=== PATIENT | female | born 1990 | race Two or more races ===

== ENCOUNTER 2019-11-04 19:44 | Emergency (ER) | payer SELFPAY ==
[~2019-11-04] VITALS: Ht 160 cm; Wt 54.4 kg
--- NOTE | 2019-11-04 19:50 | NUR ---
ED Nurse Note: Patient brought into ED by RA [id number] from home c/o abdominal pain and severe vaginal bleeding onset about 30 minutes, EMS states that patient saturated about 4 chux pads prior to arrival. patient presents with bright red bleeding. patient aa4. changed to gown; attached to monitor; side rails raised; bed locked at lowest position.
[2019-11-04 20:00] VITALS: BP 122/84
--- NOTE | 2019-11-04 20:00 | NUR ---
ED Nurse Note: iv access established. blood collected; sent down to lab. patient expelled fetus into bedpan; sent down to pathology.
--- NOTE | 2019-11-04 20:00 | NUR ---
Note lux in EDM - 11/05/19 at 0322 by [facility] ED Nurse Note: Patient brought into ED by RA [id number] from home c/o abdominal pain and severe vaginal bleedign onset about 30 minutes, EMS states that patient saturated about 4 donn pads prior to arrival. patient presents with bright red bleeding. ao4.
[2019-11-04 20:23] LABS: ANION GAP 10 mmol/L (5-15); BLOOD UREA NITROGEN 12 mg/dL (7-18); CALCIUM 9.3 MG/DL (8.5-10.1); CARBON DIOXIDE 25 MMOL/L (21-32); CHLORIDE 106 MMOL/L (98-107); CREATININE 0.8 MG/DL (0.55-1.30); POTASSIUM 3.8 MMOL/L (3.5-5.1); SODIUM 141 MMOL/L (136-145)
[2019-11-04 20:25] LABS: BASOPHILS % (AUTO) 0.8 % (0.0-2.0); HEMOGLOBIN 11.7 G/DL (12.0-16.0); MEAN CORPUSCULAR VOLUME 93 FL (80-99); MONOCYTES % (AUTO) 6.6 % (1.0-10.0); NEUTROPHILS % (AUTO) 75.6 % (45.0-75.0); PLATELET COUNT 171 K/UL (150-450); RED BLOOD COUNT 4.18 M/UL (4.20-5.40); RED CELL DISTRIBUTION WIDTH 12.4 % (11.6-14.8); WHITE BLOOD COUNT 10.5 K/UL (4.8-10.8)
[2019-11-04 20:28] LABS: ALANINE AMINOTRANSFERASE 23 U/L (12-78); ALBUMIN 3.4 G/DL (3.4-5.0); ALBUMIN/GLOBULIN RATIO 0.9 (1.0-2.7); ALKALINE PHOSPHATASE 48 U/L (46-116); ASPARTATE AMINO TRANSFERASE 20 U/L (15-37); BILIRUBIN,TOTAL 0.2 MG/DL (0.2-1.0)
[2019-11-04] MEDS ORDERED: Morphine Sulfate 4mg/ml Inj (IV USE ONLY) IVP ONE ×2 (20:30→21:00)
[2019-11-04] MEDS ORDERED: Morphine Sulfate 4mg/ml Inj (IV USE ONLY) ONE (20:53)
[2019-11-04] MEDS ORDERED: LORazepam 0.5mg tab ORAL ONE (21:00)
--- NOTE | 2019-11-04 21:07 | NUR ---
ED Nurse Note: RECEIVED VERBAL ORDER TO CHANGE 0.5 MG ATIVAN PO TO 0.5MG ATIVAN IV. NOTED AND CARRIED OUT.
--- NOTE | 2019-11-04 21:12 | Diagnostic Imaging Report ---
Indication: 28-year-old female. Technique: Grayscale and duplex Doppler imaging of the pelvis performed utilizing a transabdominal scan. Comparison: None Findings: Endovaginal exam could not be performed. Patient could not cooperate due to severe abdominal/pelvic pain. Transabdominal scan demonstrating a large echogenic blood clots measuring 6 to 7 cm transversely within the endometrial and endocervical canal. An IUP is not seen. Heterogeneous appearance of the endometrial and endocervical contents suggest retained products of conception. The left ovary measures 4 x 3.3 x 3 cm. The right ovary is not seen. There is no evidence of significant free peritoneal fluid. IMPRESSION: Blood and retained products of conception suspected within the endocervical canal. No IUP identified.
[2019-11-04] MEDS ORDERED: LORazepam Inj 2mg/ml 1ml IV ONE (21:15)
--- NOTE | 2019-11-04 21:30 | NUR ---
ED Nurse Note: patient medicated; tolerated well. iv intact and patent; fluids running as prescribed. will continue to monitor.
[2019-11-04 22:00] VITALS: BP 120/81
--- NOTE | 2019-11-04 22:57 | Emergency Room Report ---
History of Present Illness General Chief Complaint: Abdominal Pain Source: Patient Present Illness HPI Patient states that she believes she is approximately 2 months . She states that today suddenly she developed cramping pain and bleeding and then here in the emergency department she passed a fetus. She complains of cramping and pain in her lower abdomen. Allergies: Coded Allergies: No Known Allergies (Unverified , 11/04/19) Patient History Past Medical History: none, see triage record Last Menstrual Period: september 2019 : 2 Para: 2 Reviewed Nursing Documentation: PMH: Agreed; PSxH: Agreed Nursing Documentation-PMH Past Medical History: No Stated History Review of Systems All Other Systems: negative except mentioned in HPI Physical Exam Vital Signs Date Time Temp Pulse Resp B/P (MAP) Pulse Ox O2 Delivery O2 Flow Rate FiO2 11/04/19 19:45 98.2 112 20 122/84 (97) 98 Room Air Sp02 EP Interpretation: reviewed, normal General Appearance: no apparent distress, alert, GCS 15, non-toxic Head: normocephalic, atraumatic Eyes: bilateral eye normal inspection, bilateral eye PERRL ENT: hearing grossly normal, normal pharynx, no angioedema, normal voice Neck: full range of motion, supple/symm/no masses Respiratory: chest non-tender, lungs clear, normal breath sounds, no respiratory distress, no retraction, no accessory muscle use, speaking full sentences Cardiovascular #1: regular rate, rhythm, no edema Gastrointestinal: normal bowel sounds, non tender, soft, non-distended, no guarding, no rebound Rectal: deferred Genitourinary: other - Vaginal bleeding. +fetus identified passed bedside. + TTP supra-pubic. Os open. Musculoskeletal: back normal, normal range of motion, gait/station normal, non- tender Neurologic: alert, motor strength/tone normal, oriented x3, sensory intact, responsive, speech normal Psychiatric: judgement/insight normal, memory normal, mood/affect normal, no suicidal/homicidal ideation Medical Decision Making Diagnostic Impression: Primary Impression: Spontaneous miscarriage ER Course This patient presents in the process of a spontaneous miscarriage. The fetus was identified at bedside by myself visually. The patient did have a lot of pain initially secondary to clot in the endometrial and cervical canal. The patient presents within hours of the miscarriage. I do not feel that these findings meet criteria for retained products of conception at this point. Patient had further passage of clot and tissue during her ED course. The patient is type O+ and does not require RhoGam. Overall, the patient had no further pain and appeared comfortable and was resting. She did seem to have some psychotic thought processes. I suspect drug abuse, although, a primary psychiatric disorder is possible. The patient was speaking of a breathing fetus and juice on her abdomen and overall some psychotic ideation. The patient stabilized in the emergency department and is planned for discharge as long as a friend, family member or partner were to come accompanied this patient. Anticipate discharge home. Laboratory Tests Test 11/04/19 20:02 White Blood Count 10.5 K/UL (4.8-10.8) Red Blood Count 4.18 M/UL (4.20-5.40) L Hemoglobin 11.7 G/DL (12.0-16.0) L Hematocrit 39.0 % (37.0-47.0) Mean Corpuscular Volume 93 FL (80-99) Mean Corpuscular Hemoglobin 28.1 PG (27.0-31.0) Mean Corpuscular Hemoglobin Concent 30.0 G/DL (32.0-36.0) L Red Cell Distribution Width 12.4 % (11.6-14.8) Platelet Count 171 K/UL (150-450) Mean Platelet Volume 11.3 FL (6.5-10.1) H Neutrophils (%) (Auto) 75.6 % (45.0-75.0) H Lymphocytes (%) (Auto) 14.0 % (20.0-45.0) L Monocytes (%) (Auto) 6.6 % (1.0-10.0) Eosinophils (%) (Auto) 3.0 % (0.0-3.0) Basophils (%) (Auto) 0.8 % (0.0-2.0) Sodium Level 141 MMOL/L (136-145) Potassium Level 3.8 MMOL/L (3.5-5.1) Chloride Level 106 MMOL/L (98-107) Carbon Dioxide Level 25 MMOL/L (21-32) Anion Gap 10 mmol/L (5-15) Blood Urea Nitrogen 12 mg/dL (7-18) Creatinine 0.8 MG/DL (0.55-1.30) Estimate Glomerular Filtration Rate > 60 mL/min (>60) Glucose Level 115 MG/DL (74-106) H Calcium Level 9.3 MG/DL (8.5-10.1) Total Bilirubin 0.2 MG/DL (0.2-1.0) Aspartate Amino Transferase (AST) 20 U/L (15-37) Alanine Aminotransferase (ALT) 23 U/L (12-78) Alkaline Phosphatase 48 U/L (46-116) Total Protein 7.3 G/DL (6.4-8.2) Albumin 3.4 G/DL (3.4-5.0) Globulin 3.9 g/dL Albumin/Globulin Ratio 0.9 (1.0-2.7) L Human Chorionic Gonadotropin, Quant 14796 mIU/mL (1-6) H CT/MRI/US Diagnostic Results CT/MRI/US Diagnostic Results : Imaging Test Ordered: US Pelivs Impression No intrauterine . Large amount of hemorrhage/clot in the endometrial endocervical canal. Last Vital Signs Date Time Temp Pulse Resp B/P (MAP) Pulse Ox O2 Delivery O2 Flow Rate FiO2 11/04/19 21:25 98.2 11/04/19 19:45 112 20 122/84 (97) 98 Room Air Status: improved Disposition: HOME, SELF-CARE Condition: Improved Paty Landaverde DO Nov 04, 2019 22:56
[2019-11-04] MEDS ORDERED: IBUPROFEN800 MG ORAL (22:59)
--- NOTE | 2019-11-04 23:30 | NUR ---
ED Nurse Note: patient expelled placenta into bedpan. assisted patient in grooming. provided new gowns and linen. repositioned for comfort. patient resting in bed with no acute distress. vss. will continue to monitor.
[2019-11-05] VITALS: BP 117/79
[2019-11-05 01:00] VITALS: BP 123/81
--- NOTE | 2019-11-05 01:00 | NUR ---
ED Nurse Note: patient resting in bed with no acute distress. ao4. nad. vss. patient reports slight pain; states pain is tolerable and medication is not needed.
[2019-11-05 01:45] VITALS: BP 117/79
--- NOTE | 2019-11-05 01:45 | NUR ---
ER DISCHARGE NOTE: Patient is cleared to be discharged per ERMD, pt is aox4, on room air, with stable vital signs. pt was given dc and prescription instructions, pt was able to verbalize understanding, pt id band and iv site removed without complications. pt is able to ambulate with steady gait. pt took all belongings. patient left home via taxi.
== END 2019-11-05 01:45 | disposition home or self-care (01) ==
LOC: EDBD 19:44 → EMR 21:00
DX: O03.9 Complete or unspecified spontaneous abortion without complication (principal)
CPT/HCPCS: 36415; 76801; 76830; 80053; 84702; 85025; 86850; 86900; 86901; 96361; 96374; 96375; 99284; J2270; J7030